=== PATIENT | female | born 1990 | race Caucasian/White ===

== ENCOUNTER 2017-05-30 16:54 | Emergency (ER) | payer BC ==
[2017-05-30 17:15] VITALS: BP 135/85
== END 2017-05-30 19:35 | disposition left against medical advice (07) ==
LOC: UCEAST 16:54
DX: Z53.21 Procedure and treatment not carried out due to patient leaving prior to being seen by health care provider (principal)

== ENCOUNTER 2019-03-30 09:17 | Emergency (ER) | payer BC ==
[2019-03-30 09:35] VITALS: BP 127/84
--- NOTE | 2019-03-30 10:36 | UC ---
Back Pain HPI - HPI Summary HPI Summary: SLIPPED AND FELL IN THE SHOWER THIS MORNING. STRUCK LOW BACK ON EDGE OF TUB. TOOK TYLENOL WITH NO IMPROVEMENT IN SYMPTOMS. DENIES NUMBNESS OR TINGLING OF THE LEGS. NO SADDLE ANESTHESIA. NO LOSS OF BOWEL OR BLADDER CONTROL. NO HEAD INJURY OR LOC. - History of Current Complaint Chief Complaint: UCBackPain Stated Complaint: BACK INJURY Time Seen by Provider: 03/30/19 10:23 Hx Obtained From: Patient, Family/[employer] - Hx Last Menstrual Period: 03/05/19 Onset/Duration: Sudden Onset, Lasting Hours, Still Present Timing: Constant Severity Initially: Moderate Severity Currently: Moderate Pain Intensity: 7 Pain Scale Used: 0-10 Numeric Back Pain: Is Discrete @ - LOW BACK Aggravating Factor(s): Movement, Bending Alleviating Factor(s): Rest, Position Associated Signs And Symptoms: Positive: Negative - Allergies/Home Medications Allergies/Adverse Reactions: Allergies Allergy/AdvReac Type Severity Reaction Status Date / Time Egg Derived Allergy Intermediate Hives Verified 03/30/19 09:34 cefaclor [From [facility]] Allergy Rash Verified 03/30/19 09:34 mushroom Allergy Swelling Verified 03/30/19 09:35 Of Face,Lips,& Throat mushrooms Allergy Swelling Uncoded 03/30/19 09:34 PMH/Surg Hx/FS Hx/Imm Hx Neurological History: Migraine Other Neurological History: CROHNS - Surgical History Surgical History: None - Family History Known Family History: Positive: Non-Contributory - Social History Alcohol Use: Occasionally Substance Use Type: None Smoking Status (MU): Light Every Day Tobacco Smoker Type: Cigarettes Amount Used/How Often: 3-5 sig/day Household Exposure Type: Cigarettes Review of Systems All Other Systems Reviewed And Are Negative: Yes Constitutional: Positive: Negative Skin: Positive: Negative Respiratory: Positive: Negative Cardiovascular: Positive: Negative Gastrointestinal: Positive: Negative Musculoskeletal: Positive: Arthralgia, Decreased ROM, Myalgia Physical Exam Triage Information Reviewed: Yes Appearance: Well-Nourished, Pain Distress - MODERATE Vital Signs: Initial Vital Signs Temp 98.1 F 03/30/19 09:29 Pulse 78 03/30/19 09:29 Resp 19 03/30/19 09:29 BP 127/84 03/30/19 09:29 Pulse Ox 98 03/30/19 09:29 Vital Signs Reviewed: Yes Eyes: Positive: Conjunctiva Clear ENT: Positive: Hearing grossly normal Neck: Positive: Supple Respiratory: Positive: No respiratory distress, No accessory muscle use Cardiovascular: Positive: Pulses Normal Abdomen Description: Positive: Soft Musculoskeletal: Positive: No Edema, ROM Limited @ - BACK, Other: - DIFFUSELY TENDER ACROSS LOW BACK. NO FOCAL BONY TENDERNESS Neurological: Positive: Alert, Muscle Tone Normal, Other: - NEGATIVE STRAIGHT LEG RAISE Psychological: Positive: Normal Response To Family, Age Appropriate Behavior Skin: Negative: Rashes Back Pain Course/Dx - Course Course Of Treatment: PRESENTATION CONSISTENT WITH SOFT TISSUE MUSCULOSKELETAL INJURY OF THE LOW BACK. NO INDICATION FOR IMAGING TODAY. NAPROXEN AND MUSCLE RELAXER NEEDED. REST, STRETCH, RANGE OF MOTION EXERCISES. RECOMMEND HEAT AND MASSAGE. FOLLOW -UP IF NOT IMPROVING EXPECTED. - Differential Dx/Diagnosis Provider Diagnosis: Contusion of lower back Discharge ED - Sign-Out/Discharge Documenting (check all that apply): Patient Departure All imaging exams completed and their final reports reviewed: No Studies - Discharge Plan Condition: Stable Disposition: HOME Prescriptions: Cyclobenzaprine TAB* [Flexeril TAB*] 10 mg PO BID PRN #30 tab PRN Reason: Pain Naproxen [Naproxen 500 mg tab] 500 mg PO BID PRN #30 tablet PRN Reason: Pain Patient Education Materials: Acute Low Back Pain (ED), Contusion in Adults (ED) Forms: *Work Release Referrals: [facility] [Outside] - If Needed Additional Instructions: YOUR SYMPTOMS SHOULD IMPROVE SIGNIFICANTLY OVER THE NEXT 1-2 WEEKS. IF YOU DO NOT IMPROVE EXPECTED FOLLOW-UP WITH YOUR PCP OR SPORTS MEDICINE. YOU MAY BENEFIT FROM IMAGING AT THAT TIME. REST. NAPROXEN NEEDED FOR DISCOMFORT. TAKE MUSCLE RELAXER BEFORE BED. BE SURE TO GO THROUGH SLOW RANGE OF MOTION AND STRETCHING EXERCISES DAILY YOU ARE ABLE TO PREVENT STIFFENING UP AND MAKING THE DISCOMFORT WORSE. GO TO THE ED WITHOUT FAIL IF YOU DEVELOP WORSENING NUMBNESS/TINGLING IN YOUR LEGS, NUMBNESS IN THE GENITAL REGION, LOSS OF BOWEL/BLADDER CONTROL, INTOLERABLE PAIN OR ANY OTHER CONCERNING SYMPTOMS. [facility] [address] [place] [address] PHONE: CALL THE NUMBER BELOW FOR ASSISTANCE IN ESTABLISHING WITH A PCP An additional resource available to assist in finding the appropriate physician for your health care needs is the [facility] ([facility]). You may contact them by calling [phone]. - Billing Disposition and Condition Condition: STABLE Disposition: Home
== END 2019-03-30 10:52 | disposition home or self-care (01) ==
LOC: UCEAST 09:17
DX: S30.0XXA Contusion of lower back and pelvis, initial encounter (principal); F17.210 Nicotine dependence, cigarettes, uncomplicated; Z91.012 Allergy to eggs; Z91.018 Allergy to other foods; Z88.1 Allergy status to other antibiotic agents; W01.0XXA Fall on same level from slipping, tripping and stumbling without subsequent striking against object, initial encounter; Y92.9 Unspecified place or not applicable
CPT/HCPCS: 99212; G0463

== ENCOUNTER 2021-02-13 08:58 | Inpatient (IN) ==
[2021-02-13] MEDS ORDERED: Buffered Lidocaine 1% SYRIN 1 ml INTRADERM ONE (09:22)
[2021-02-13 10:33] LABS: Urine Benzodiazepine Screen None Detected (None Detect); Urine Cannabinoids Screen None Detected (None Detect); Urine Opiates Screen None Detected (None Detect)
[2021-02-13] MEDS ORDERED: Sodium Citrate/Citric Acid LIQ 15 ML UDC ONE (10:42)
[2021-02-13] MEDS ORDERED: DiMENhydriNATE IV 50 mg/ml 1 ml VIAL IV PUSH PRN (10:45)
[2021-02-13] MEDS ORDERED: Naloxone 4 mg VIAL (10 ml) 2 MG in NS 0.9% 250 ml 250 ML IV PRN (10:45)
[2021-02-13] MEDS ORDERED: Naloxone 0.4 mg VIAL 0.4 mg/ml 1 ml VIAL IV PRN ×2 (10:45)
[2021-02-13] MEDS ORDERED: Ondansetron 4 mg VIAL 2 MG/ML 2 ml VIAL IV PRN (10:45)
[2021-02-13] MEDS ORDERED: Metoclopramide 5 MG/ML VIAL (10 mg) IV PRN (10:45)
[2021-02-13] MEDS ORDERED: Clindamycin 900 MG/D5W BAG IVPB ONE (11:00)
[2021-02-13] MEDS ORDERED: Gentamicin ADULT 275 MG in NS 0.9% 100 ml BAG 100 ML IVPB ONE (11:00)
[2021-02-13] MEDS ORDERED: Morphine PF AMP (0.5MG/ML) 5 MG/10 ML AMP ONE (11:08)
[2021-02-13] MEDS ORDERED: Ondansetron 4 mg VIAL 2 MG/ML 2 ml VIAL ONE (11:09)
[2021-02-13] MEDS ORDERED: Oxytocin 10 UNITS/ML 1 ML VIAL ONE (11:09)
[2021-02-13] MEDS ORDERED: Clindamycin 900 MG/D5W BAG 900 MG/50 ML BAG IVPB ONE (11:10)
[2021-02-13] MEDS ORDERED: Phenylephrine 40 mcg/mL 10mL (400mcg) SYRINGE ONE (11:28)
[2021-02-13] MEDS ORDERED: EPHEDrine (Pressors) 50 MG/ML VIAL ONE (11:28)
[2021-02-13] MEDS ORDERED: Glycerin ADULT 2.4 gm SUPP PR PRN (12:34)
[2021-02-13] MEDS ORDERED: Witch Hazel PAD JAR TOPICAL PRN (12:34)
[2021-02-13] MEDS ORDERED: Acetaminophen IV 1 GM/100ML 100 ML IV PRN (12:36)
[2021-02-13] MEDS ORDERED: Lactated Ringers 1000 ml BAG 1,000 ML IV SCH (13:00)
[2021-02-14 06:18] LABS: ABS Eosinophils 0.1 10^3/ul (0-0.6); ABS Lymphocytes 1.5 10^3/ul (1.0-4.8); ABS Monocytes 0.9 10^3/ul (0-0.8); ABS Neutrophils 7.5 10^3/ul (1.5-7.7); Eosinophil % 0.7 %; Hematocrit 28 % (35-47); Hemoglobin 9.6 g/dL (12.0-16.0); Lymphocyte % 15.1 %; Mean Corpuscular HGB Conc 35 g/dL (31-36); Mean Corpuscular Hemoglobin 30 pg (27-31); Mean Corpuscular Volume 86 fL (80-97); Mean Platelet Volume 7.1 fL (7.4-10.4); Platelet Count 323 10^3/uL (150-450); Red Blood Count 3.22 10^6 /uL (3.70-4.87); Red Cell Distribution Width 15 % (10-15); White Blood Count 10.1 10^3/uL (3.5-10.8)
[2021-02-15] MEDS ORDERED: RHO D Immune Globulin (HUMAN) 300 MCG = 1,500 I.U. INJ IM ONE (20:30)
[2021-02-16 07:49] VITALS: BP 113/67
== END 2021-02-16 10:43 | disposition home or self-care (01) | DRG 540 ==
LOC: MCHOB 08:58
PROVIDERS: ADMIT Obstetrics & Gynecology; ATTEND Obstetrics & Gynecology